=== PATIENT | female | born 1965 | race Caucasian/White ===

== ENCOUNTER 2020-10-23 14:50 | Emergency (ER) | payer BC, SELFPAY ==
--- NOTE | 2020-10-23 14:49 | ECG_ITS ---
APPROVED REPORT Exam: Resting ECG HR:73 bpm ECG Measurements Heart Rate 73 AXES AK 156 P 40 QRSd 80 QRS 36 QT 388 T 24 QTc 427 Conclusion Normal sinus rhythm Cannot rule out Anterior infarct, age undetermined Abnormal ECG Electronically signed by : Aamir Pichardo, 10/24/2020 17:51:30
[2020-10-23 14:51] VITALS: BP 208/118; PULSE 76; RESP 20; TEMP 36.6; O2SAT 95; BMI 29.8
--- NOTE | 2020-10-23 14:53 | HMH.EDGENADL ---
ED Disposition Clinical Impression: Syncope and collapse, Essential hypertension Disposition: Home, Self-Care Condition on Discharge: Good Instructions: DI for Syncope in Adults (Fainting) Additional Instructions: Follow-up with your primary care doctor. Call tomorrow to make follow-up cement. Return to the emergency department if fainting returns or if chest pain, shortness of breath, severe headache. Referrals: Audra Kinsey [Primary Care Provider] - - Critical Care Critical Care Time: No Attestation: On , the high probability of a clinically significant, sudden or life threatening deterioration of the following system(s) required my full and direct attention, intervention and personal management. The time I documented below is in addition to time spent performing reported procedures but includes the following listed in this critical care notation. Medical Decision Making - Doni Inquiry Pt receiving controlled substance: No Vital Signs: 10/23/20 14:51 10/23/20 15:04 10/23/20 16:19 Temperature 97.8 F Temperature Source Oral Pulse Rate [Left Radial] 76 78 68 Respiratory Rate 20 Blood Pressure [Right Arm] 208/118 H 176/109 H 173/99 H Blood Pressure Mean [Right Arm] 148 131 123 Blood Pressure Source [Right Arm] Automatic Cuff Automatic Cuff Automatic Cuff Blood Pressure Position [Right Arm] Sitting Sitting Sitting 02 Sat by Pulse Oximetry 95 94 L 96 Oxygen Delivery Method Room Air Room Air Room Air - Lab Data Lab Results 10/23/20 14:53: WBC 14.7 H, RBC 4.70, Hgb 14.1, Hct 42.1, MCV 89.6, MCH 29.9, MCHC 33.4, RDW 13.9, Plt Count 212, MPV 8.3, Neut % (Auto) 78.3, Lymph % (Auto) 16.8, Motley % (Auto) 3.5, Eos % (Auto) 0.8, Baso % (Auto) 0.6, Neut # (Auto) 11.5 H, Lymph # (Auto) 2.5, Motley # (Auto) 0.5, Eos # (Auto) 0.1, Baso # (Auto) 0.1 10/23/20 14:53: Sodium 139, Potassium 3.6, Chloride 105, Carbon Dioxide 26, Anion Gap 11.6, BUN 17, Creatinine 0.90, Estimated Creat Clear 94, Estimated GFR 65, Est GFR ( Amer) 79, Glucose 101 H, Calcium 9.4, Troponin I < 0.01 Result diagrams: 10/23/20 14:53 10/23/20 14:53 Orders (Tests/Meds): ORDERS Category Date Time Status XR chest portable Stat Exams 10/23/20 15:11 Taken Troponin I Q3H Lab 10/23/20 18:15 Ordered Troponin I Q3H Lab 10/23/20 21:15 Ordered - Radiology Data #1 Image(s): Chest Image Reviewed: Yes I reviewed the patient's radiology image Preliminary Findings: Normal/NAD - CT Data CT Scan: Head Time Received: 16:[address] Reviewed: Yes: I have viewed the radiologist's interpretation Findings Narrative: PROCEDURE: CT HEAD/BRAIN WO CON CLINICAL INDICATION: syncope, headache COMPARISON: No exams were available for comparison TECHNIQUE: Axial images obtained. All CT scans at the facility use one or more dose reduction, viz: automated exposure control, ma/kV adjustment per patient size (including targeted exams where dose is matched to indication, i.e. head), or iterative reconstruction technique. FINDINGS: No midline shift, mass effect, intracranial hemorrhage, hydrocephalus, or extra-axial fluid collection is evident. The calvarium has an unremarkable appearance. No mastoid effusion. No sinus air-fluid level. IMPRESSION: No acute intracranial finding Dictated by: Rasheed Aldridge MD 10/23/2020 16:04 Rasheed Aldridge MD in [facility] 10/23/2020 16:04 - ECG Data Tracing #1 EKG interpreted by Joby Esteves MD: Rhythm: sinus Rate: 73 [place]: normal Ectopy: none Conduction: normal ST Segment Changes: none T Wave Changes: none Q Waves: none No evidence of acute ischemia or injury Poor R wave progression - Reevaluation(s) Time: 16:30 Reevaluation #1: BP 160/93. Feels normal, asymptomatic. General Adult HPI - General Chief complaint: Syncope Stated complaint: syncope Time Seen by Provider: 10/23/20 15:10 - History of Present Illness HPI narrative: Brought in by
[2020-10-23 15:04] VITALS: BP 176/109; PULSE 78; O2SAT 94
--- NOTE | 2020-10-23 15:11 | XR_ITS ---
PROCEDURE: XR CHEST PORTABLE CLINICAL HISTORY: syncope COMPARISON: No exams were available for comparison FINDINGS: The cardiomediastinal silhouette and pulmonary vascularity are within normal limits. The lungs are clear without infiltrates, suspicious nodules, or pleural effusions. No acute bony abnormalities. IMPRESSION: No acute findings. Dictated by: Rasheed Aldridge MD 10/23/2020 17:11 Rasheed Aldridge MD in [facility] 10/23/2020 17:11
--- NOTE | 2020-10-23 15:23 | CT_ITS ---
PROCEDURE: CT HEAD/BRAIN WO CON CLINICAL INDICATION: syncope, headache COMPARISON: No exams were available for comparison TECHNIQUE: Axial images obtained. All CT scans at the facility use one or more dose reduction, viz: automated exposure control, ma/kV adjustment per patient size (including targeted exams where dose is matched to indication, i.e. head), or iterative reconstruction technique. FINDINGS: No midline shift, mass effect, intracranial hemorrhage, hydrocephalus, or extra-axial fluid collection is evident. The calvarium has an unremarkable appearance. No mastoid effusion. No sinus air-fluid level. IMPRESSION: No acute intracranial finding Dictated by: Rasheed Aldridge MD 10/23/2020 16:04 Rasheed Aldridge MD in [facility] 10/23/2020 16:04
[2020-10-23 15:25] LABS: Basophils # 0.1 K/mm3 (0-0.2); Basophils % 0.6 % (0.1-2.0); Eosinophils # 0.1 K/mm3 (0.0-0.4); Eosinophils % 0.8 % (0.1-12.0); Hematocrit 42.1 % (37.0-47.0); Hemoglobin 14.1 g/dL (12.2-16.2); Lymphocytes # 2.5 K/mm3 (0.7-4.5); Lymphocytes % 16.8 % (10-50); Mean Corpuscular HGB Conc 33.4 g/dL (31.8-35.4); Mean Corpuscular Hemoglobin 29.9 pg (27.0-31.2); Mean Corpuscular Volume 89.6 fl (81-99); Mean Platelet Volume 8.3 fl (7.4-10.4); Monocytes # 0.5 K/mm3 (0.1-1.0); Monocytes % 3.5 % (1.7-9.3); Neutrophils # 11.5 K/mm3 (1.8-7.8); Neutrophils % 78.3 % (37.0-80.0); Platelet Count 212 K/mm3 (142-424); Red Cell Distribution Width 13.9 % (11.5-17.5); White Blood Count 14.7 K/mm3 (4.8-10.8)
[2020-10-23 15:27] LABS: Chloride 105 mmol/L (98-107); Potassium 3.6 mmoL/L (3.5-5.1); Sodium 139 mmol/L (136-145)
[2020-10-23 15:30] LABS: Anion Gap 11.6 mEq/L (5-15); Blood Urea Nitrogen 17 mg/dl (7-17); Calcium 9.4 mg/dl (8.4-10.2); Carbon Dioxide 26 mmol/L (22.0-30.0); Creatinine Clearance Estimated 94 mL/min (50-200); Estimated Glomerular Filt Rate 65 ml/min (>60); GFR (African American) 79 ML/MIN (>60); Glucose 101 mg/dl (74-100)
--- NOTE | 2020-10-23 15:37 | PC.NURSE ---
Rad at bedside
--- NOTE | 2020-10-23 15:40 | PC.NURSE ---
Pt to rad
[2020-10-23 15:43] LABS: Troponin I < 0.01 ng/ml (0.00-0.034)
[2020-10-23 16:19] VITALS: BP 173/99; PULSE 68; O2SAT 96
[2020-10-23 16:37] VITALS: BP 159/96; PULSE 70; RESP 17; TEMP 36.7; O2SAT 96
== END 2020-10-23 16:41 | disposition home or self-care (01) ==
PROVIDERS: Emergency Provider Emergency Medicine; PCP Nurse Practitioner Family
DX: R55 Syncope and collapse (principal); I10 Essential (primary) hypertension; Z79.899 Other long term (current) drug therapy
CPT/HCPCS: 70450; 71045; 80048; 84484; 85025; 93005; 99283

== ENCOUNTER 2023-09-29 08:15 | Emergency (ER) | payer SELFPAY ==
[2023-09-29 08:20] VITALS: BP 140/91; PULSE 105; RESP 18; TEMP 36.9; O2SAT 100; BMI 32.0
--- NOTE | 2023-09-29 08:30 | ED_ITS ---
Discharge Plan Disposition Patient Disposition: Home, Self-Care Condition: Good Prescriptions Prescriptions: New azithromycin [Zithromax] 250 mg tablet 250 mg PO UD DOSE PK Qty: 6 0RF Rx Instructions: Take two (2) tablets today, then one (1) tablet days #2 thru #5 ibuprofen [ibuprofen] 600 mg tablet 600 mg PO Q6HP PRN (Reason: Mild Pain) Qty: 30 0RF ondansetron 4 mg Tablet,Disintegrating 4 mg PO Q8H PRN (Reason: Nausea) Qty: 12 0RF No Action escitalopram oxalate 20 MG tablet 20 mg PO DAILY clonazepam 0.5 MG tablet 0.5 mg PO DAILY benazepril-hydrochlorothiazide 1 EACH tablet 1 each PO DAILY labetalol 100 MG tablet 100 mg PO DAILY potassium chloride 10 MEQ tablet extended release 10 meq PO DAILY simvastatin 20 MG tablet 20 mg PO DAILY Referrals Follow up/Referrals: Audra Kinsey [Primary Care Provider] - See instructions Activity Restrictions/Add. Instructions Additional Instructions/Restrictions: Drink plenty of fluids. Take tylenol or ibuprofen for pain or fever. I sent in a prescription for i buprofen 600 mg, but you could just take over the counter. Take the medications as directed. Follow up with your regular doctor. GO TO THE ER FOR ANY WORSENING SYMPTOMS Clinical Impressions Clinical Impression: Acute viral syndrome Stand Alone Forms Stand Alone Forms: Work/School Release Instructions Patient Instructions: DI for Viral Syndrome [place]charge ED Provider[place]cho[place] Campbell [facility] [place] General Stated complaint: body aches, 102 fever, sore throat last night Time Seen by Provider: 09/29/23 08:28 History of Present Illness Provider Complaint: She states that since yesterday she has had fever, chills, body aches, sore throat, malaise, cough, and nausea. Related Data Home Medications Medication Instructions Recorded Confirmed benazepril 10 1 each PO DAILY BLOOD PRESSURE 10/23/20 10/23/20 mg-hydrochlorothiazide 12.5 mg tablet clonazepam 0.5 mg tablet 0.5 mg PO DAILY Anxiety 10/23/20 10/23/20 escitalopram oxalate 20 mg tablet 20 mg PO DAILY Anxiety 10/23/20 10/23/20 labetalol 100 mg tablet 100 mg PO DAILY BLOOD PRESSURE 10/23/20 10/23/20 potassium chloride 10 mEq 10 meq PO DAILY LOW K+ 10/23/20 10/23/20 tablet,extended release simvastatin 20 mg tablet 20 mg PO DAILY High cholesterol 10/23/20 10/23/20 Previous Rx's Medication Instructions Recorded azithromycin 250 mg tablet 250 mg PO UD DOSE PK #6 tabs 09/29/23 (Zithromax) ibuprofen 600 mg tablet 600 mg PO Q6HP PRN Mild Pain #30 09/29/23 tabs ondansetron 4 mg disintegrating 4 mg PO Q8H PRN Nausea #12 tabs 09/29/23 tablet Allergies Allergy/AdvReac Type Severity Reaction Status Date / Time No Known Allergies Allergy Verified 09/29/23 09:05 [facility] Disclaimer: The information contained in this section may have been updated after the patient was seen, as this information can be updated by other users. Social History Smoking Status: Unknown if ever smoked alcohol intake: current current occupational status: employed Travel in the last 8 weeks: None ROS Obtained: Yes All systems reviewed & no additional complaints except as documented Constitutional Constitutional: Reports chills and Reports fever(s) Eyes Eyes: Denies eye discharge ENT Ears, Nose, Mouth, and Throat: Reports as per HPI Cardiovascular Cardiovascular: Denies chest pain Respiratory Respiratory: Denies chest congestion and Reports cough Gastrointestinal Gastrointestingal: Reports nausea; Denies abdominal pain, constipation, cramping, diarrhea or vomiting Musculoskeletal Musculoskeletal: Denies arthralgias Integumentary/Breasts Skin/Breast: Denies rash Neurologic Neurologic: Denies paresthesias Physical Exam General General appearance: alert and in no apparent distress Eye Eye exam: Present normal appearance, PERRL and EOMI ENT ENT exam: Present mucous membranes moist and normal external ear exam Expanded ENT Exam External ear exam: Present normal external inspection TM/Canal exam: Bilateral TM: erythema and bulging Nose exam: Absent sinus tenderness Nasal speculum exam: Bilateral: normal Mouth exam: Present normal external inspection; Absent drooling Teeth exam: Present normal inspection Throat exam: Present tonsillar erythema and tonsillomegaly Neck Neck exam: Present normal inspection, full ROM and trachea midline; Absent tenderness, lymphadenopathy or thyromegaly Chest Chest inspection: Present normal inspection and symmetric chest wall rise; Abse nt tenderness or rash Respiratory Respiratory exam: Present normal lung sounds bilaterally; Absent respiratory distress, wheezes, stridor or accessory muscle use Cardiovascular Cardiovascular exam: Present regular rate, normal rhythm and normal heart sounds Abdominal Exam Abdominal exam: Present soft; Absent distention, tenderness, guarding, rebound or rigidity Extremities Exam Extremities exam: Present normal inspection, full ROM and normal capillary refill; Absent tenderness or calf tenderness Back Exam Back exam: Present normal inspection and full ROM; Absent tenderness Neurological Exam Neurological exam: Present alert and oriented X3 Psychiatric Psychiatric exam: Present normal affect and normal mood Skin Skin exam: Present warm, dry, intact and normal color Lymphatic Lymphatic Findings: no adenopathy Medical Decision Making Medical Records Medical records reviewed: No I reviewed the patient's medical records. Doni Inquiry Pt receiving controlled substance: No Lab Data Lab results reviewed: Yes I reviewed the patient's lab results.
[2023-09-29 09:22] LABS: UTC Influenza A Antigen Negative (Negative); UTC Influenza B Antigen Negative (Negative)
[2023-09-29 09:23] LABS: UTC Strep Screen (Rapid) Negative (Negative)
[2023-09-29 09:33] VITALS: BP 140/91; PULSE 105; RESP 18; TEMP 36.9; O2SAT 100
== END 2023-09-29 09:32 | disposition home or self-care (01) ==
PROVIDERS: Emergency Provider Nurse Practitioner Family; PCP Nurse Practitioner Family
DX: R05.9 Cough, unspecified (principal); R50.9 Fever, unspecified; R07.0 Pain in throat; R11.0 Nausea; R53.81 Other malaise; M79.18 Myalgia, other site; B34.9 Viral infection, unspecified
CPT/HCPCS: 87804; 87880; 99204; 99212; G0463

== ENCOUNTER 2023-12-26 08:04 | Emergency (ER) | payer OTHER, SELFPAY ==
--- NOTE | 2023-12-26 08:10 | XR_ITS ---
FINAL REPORT CLINICAL HISTORY: fall FINDINGS: LEFT HAND Three views demonstrate no acute fracture or dislocation. The visualized joint spaces are normally aligned. The soft tissues are unremarkable. IMPRESSION: No acute process. Reviewed, Interpreted and Dictated by Monroe Barnett MD Transcribed by Supriya Chapman Authenticated and [facility]
--- NOTE | 2023-12-26 08:10 | XR_ITS ---
FINAL REPORT CLINICAL HISTORY: fall FINDINGS: LEFT WRIST THREE VIEW FINDINGS: Three views show no evidence of an acute, displaced fracture or dislocation of the visualized bony architecture. The joint spaces appear normal. IMPRESSION: Unremarkable exam. Reviewed, Interpreted and Dictated by Monroe Barnett MD Transcribed by Supriya Chapman Authenticated and [facility]
[2023-12-26 08:15] VITALS: BP 121/80; PULSE 78; RESP 18; TEMP 36.8; O2SAT 95; BMI 31.4
--- NOTE | 2023-12-26 08:34 | ED_ITS ---
Discharge Plan Disposition Patient Disposition: Home, Self-Care Condition: Good Prescriptions Prescriptions: No Action escitalopram oxalate 20 MG tablet 20 mg PO DAILY benazepril-hydrochlorothiazide 1 EACH tablet 1 each PO DAILY labetalol 100 MG tablet 100 mg PO DAILY potassium chloride 10 MEQ tablet extended release 10 meq PO DAILY simvastatin 20 MG tablet 20 mg PO DAILY ibuprofen [ibuprofen] 600 mg tablet 600 mg PO Q6HP PRN (Reason: Mild Pain) Qty: 30 0RF amlodipine 10 mg tablet 10 mg PO DAILY Patient Comments: TAKE 1 TABLET BY MOUTH ONCE DAILY Referrals Follow up/Referrals: Myron Arias DO [Staff Physician] - See instructions Audra Kinsey [Primary Care Provider] - See instructions Activity Restrictions/Add. Instructions Additional Instructions/Restrictions: Rest the extremity, apply ice for 15 minutes as tolerated three or four times per day, Elevate the extremity as tolerated while you are resting. Take ibuprofen for pain (if you can take this). Follow up with Dr. Arias (orthopedics). I put in a referral but you need to call his office and schedule an appointment. Follow up with your regular doctor. GO TO THE ER FOR ANY WORSENING SYMPTOMS Clinical Impressions Clinical Impression: Left wrist sprain, Sprain of left hand Instructions Patient Instructions: DI for Wrist Sprain, DI for Hand Injury Discharge ED Provider: Ochoa Campbell [facility] General Stated complaint: AO- Pain in L wrist Mode of Arrival: Ambulatory Source of Information: Patient Limitations: No Limitations Time Seen by Provider: 12/26/23 08:33 Description of Symptoms (Recalled from Triage Doc. by RN): Pt was going over fence and fell and hurt left wrist. HEENT Symptoms (Recalled from RN notes): Yes Resp Symptoms (Recalled from RN notes): No Skin Symptoms (Recalled from RN notes): No MS Symptoms (Recalled from RN notes): No Functional Status (Recalled from RN notes): n/a History of Present Illness Provider Complaint: She states that she fell 2 days ago and came down on her left wrist and hand. She has had left wrist pain and swelling since then. She states that flexing her wrist makes her pain worse. She denies any other injury and complaints. Related Data Home Medications Medication Instructions Recorded Confirmed benazepril 10 1 each PO DAILY BLOOD PRESSURE 10/23/20 12/26/23 mg-hydrochlorothiazide 12.5 mg tablet escitalopram oxalate 20 mg tablet 20 mg PO DAILY Anxiety 10/23/20 12/26/23 labetalol 100 mg tablet 100 mg PO DAILY BLOOD PRESSURE 10/23/20 12/26/23 potassium chloride 10 mEq 10 meq PO DAILY LOW K+ 10/23/20 12/26/23 tablet,extended release simvastatin 20 mg tablet 20 mg PO DAILY High cholesterol 10/23/20 12/26/23 amlodipine 10 mg tablet 10 mg PO DAILY 12/26/23 12/26/23 Previous Rx's Medication Instructions Recorded ibuprofen 600 mg tablet 600 mg PO Q6HP PRN Mild Pain #30 09/29/23 tabs Allergies Allergy/AdvReac Type Severity Reaction Status Date / Time No Known Allergies Allergy Verified 12/26/23 08:22 Worker's Comp Is this a Worker's Comp case?: No [facility] Disclaimer: The information contained in this section may have been updated after the patient was seen, as this information can be updated by other users. Social History Smoking Status: Unknown if ever smoked alcohol intake: current alcohol intake frequency: holidays/special occasions only current occupational status: employed Travel in the last 8 weeks: None ROS Obtained: Yes All systems reviewed & no additional complaints except as documented Constitutional Constitutional: Denies chills and Denies fever(s) Eyes Eyes: Denies eye discharge ENT Ears, Nose, Mouth, and Throat: Denies dizziness, Denies otalgia and Denies sore throat Cardiovascular Cardiovascular: Denies chest pain Respiratory Respiratory: Denies shortness of breath, Denies chest congestion, Denies cough, Denies stridor and Denies wheezing Gastrointestinal Gastrointestingal: Denies nausea or vomiting Musculoskeletal Musculoskeletal: Reports as per HPI Integumentary/Breasts Skin/Breast: Denies redness, Denies rash and Denies wounds Neurologic Neurologic: Denies dizziness and Denies paresthesias Allergic/Immunologic Allergic/Immunologic: Denies wheezing Physical Exam General General appearance: alert and in no apparent distress Head Head exam: atraumatic, normocephalic and normal inspection Eye Eye exam: Present normal appearance, PERRL and EOMI ENT ENT exam: Present normal exam, normal oropharynx, mucous membranes moist, TM's normal bilaterally and normal external ear exam Neck Neck exam: Present normal inspection, full ROM and trachea midline; Absent meningismus or lymphadenopathy Chest Chest inspection: Present normal inspection and symmetric chest wall rise; Absent tenderness Respiratory Respiratory exam: Present normal lung sounds bilaterally; Absent respiratory distress Cardiovascular Cardiovascular exam: Present regular rate and normal rhythm; Absent JVD Abdominal Exam Abdominal exam: Present soft and normal bowel sounds; Absent distention, tenderness or guarding Extremities Exam Extremities exam: Present normal capillary refill; Absent calf tenderness Expanded Upper Extremity Exam Left: Shoulder exam: Present normal inspection and full ROM; Absent tenderness or tenderness over AC joint Arm exam: Present normal inspection and full ROM; Absent tenderness Elbow exam: Present normal inspection and full ROM; Absent tenderness, pain w/ pronation/supination or tenderness over radial head Forearm/Wrist exam: Present tenderness and swelling; Absent full ROM, abrasion, laceration, ecchymosis, deformity, crepitus, dislocation, erythema, tenderness over anatomical snuff box or pain with axial thumb loading Hand exam: Present full ROM, tenderness and swelling; Absent abrasion, laceration, skin avulsion, ecchymosis, deformity, crepitus, dislocation, erythema, amputation, nail avulsion or subungual hematoma Neuromotor exam: Normal wrist extension, thumb opposition, thumb IP flexion, thumb adduction and fingers 2-5 abduction Neurosensory exam: Normal radial nerve, ulnar nerve and median nerve Vascular exam: Normal capillary refill, radial pulse and ulnar pulse Back Exam Back exam: Present normal inspection; Absent tenderness Neurological Exam Neurological exam: Present alert and oriented X3 Psychiatric Psychiatric exam: Present normal affect and normal mood Skin Skin exam: Present warm, dry, intact and normal color Lymphatic Lymphatic Findings: no adenopathy Medical Decision Making Medical Records Medical records reviewed: No I reviewed the patient's medical records. Doni Inquiry Pt receiving controlled substance: No Vital Signs: 12/26/23 08:15 Temperature 98.3 F Temperature Source Oral Pulse Rate [Right Radial] 78 Respiratory Rate 18 Blood Pressure [Right Arm] 121/80 Blood Pressure Mean [Right Arm] 93 Blood Pressure Source [Right Arm] Automatic Cuff Blood Pressure Position [Right Arm] Sitting 02 Sat by Pulse Oximetry 95 Oxygen Delivery Method Room Air Orders (Tests/Meds): ORDERS Category Date Time Status Wrist XR left minimum 3 views [XR wrist LT min 3V] Stat Exams 12/26/23 08:10 Taken XR hand LT min 3V Stat Exams 12/26/23 08:10 Taken Radiology Data #1: Image(s): Wrist Image Reviewed: Yes I reviewed the patient's radiology image and Yes I have reviewed radiologist's interpretation Preliminary Findings: No Fracture Seen Accession No. : [id number] Patient Name / ID : NELSON CHAUHAN / [id number] Exam Date : 12/26/2023 08:10:06 ( Final ) Study Comment : Sex / Age : Creator : Beny Barnett MD Dictator : Shovel Engineer : Certified Pedorthotist : Beny Barnett MD Approver2 : Report Date : 12/26/2023 08:46:59 My Comment : FINAL REPORT CLINICAL HISTORY: fall FINDINGS: LEFT WRIST THREE VIEW FINDINGS: Three views show no evidence of an acute, displaced fracture or dislocation of the visualized bony architecture. The joint spaces appear normal. IMPRESSION: Unremarkable exam. Reviewed, Interpreted and Dictated by Monroe Barnett MD Transcribed by Supriya Chapman Authenticated and [facility]: Image(s): Hand Image Reviewed: Yes I reviewed the patient's radiology image and Yes I have reviewed radiologist's interpretation Preliminary Findings: No Fracture Seen Accession No. : [id number] Patient Name / ID : NELSON CHAUHAN / [id number] Exam Date : 12/26/2023 08:08:06 ( Final ) Study Comment : Sex / Age : Creator : Beny Barnett MD Dictator : Shovel Engineer : Certified Pedorthotist : Beny Barnett MD Approver2 : Report Date : 12/26/2023 08:47:03 My Comment : FINAL REPORT CLINICAL HISTORY: fall FINDINGS: LEFT HAND Three views demonstrate no acute fracture or dislocation. The visualized joint spaces are normally aligned. The soft tissues are unremarkable. IMPRESSION: No acute process. Reviewed, Interpreted and Dictated by Monroe Barnett MD Transcribed by Supriya Chapman Authenticated and [facility] Procedures Risk/Benefits of Procedure(s) Were Explained: Yes Orthopedic Splinting/Casting Injury #1: Side: left Upper Extremity Injury Location: wrist and hand Upper Extremity Immobilizer: volar splint and applied by nurse/dr singh Post Cast/Splinting Neuro Status: intact and no change Post Cast/Splinting Vasc Status: intact and no change
[2023-12-26 09:23] VITALS: BP 121/80; PULSE 78; RESP 18; TEMP 36.8; O2SAT 95
== END 2023-12-26 09:23 | disposition home or self-care (01) ==
PROVIDERS: Emergency Provider Nurse Practitioner Family; PCP Nurse Practitioner Family
DX: S63.92XA Sprain of unspecified part of left wrist and hand, initial encounter (principal); W19.XXXA Unspecified fall, initial encounter
CPT/HCPCS: 73110; 73130; 99212; 99214; G0463

== ENCOUNTER 2024-02-28 07:46 | Outpatient (CLI) | payer OTHER, SELFPAY ==
--- NOTE | 2024-02-28 08:13 | MM_ITS ---
PROCEDURE INFORMATION: Exam: MG Bilateral Screening 3D Mammography Exam date and time: 02/28/2024 7:57 AM Age: 58 years old Clinical indication: Screening mammogram TECHNIQUE: Imaging protocol: Bilateral Screening tomosynthesis and 2D mammography including computer-aided detection (CAD) when performed. COMPARISON: 1. MG MAMMO SCREENING DIGITAL TOMOSYNTHESIS BILATERAL W CAD 12/29/2021 8:43 AM 2. MG MAMMO DIAGNOSTIC DIGITAL TOMOSYNTHESIS BILATERAL W CAD 11/30/2018 2:41 PM 3. MG MAMMO DIAGNOSTIC RIGHT W CAD 04/18/2018 1:14 PM 4. MG MAMMO DIAGNOSTIC RIGHT W CAD 10/12/2017 8:12 AM FINDINGS: MAMMOGRAPHY: Breast composition: There are scattered areas of fibroglandular density. Mass: 0.5 cm mass within the upper outer anterior left breast should be further assessed with spot views in CC/MLO projection. Ultrasound may also be required. Architectural distortion: No new or suspicious architectural distortion. Calcifications: No new or suspicious calcifications are present Asymmetric density: No new or suspicious asymmetric density is present Skin thickening: None. Axillary adenopathy: None. IMPRESSION: 0.5 cm mass within the upper outer anterior left breast should be further assessed with spot views in CC/MLO projection. Ultrasound may also be required. ASSESSMENT: BI-RADS category 0: Incomplete-need additional imaging evaluation
[2024-02-28 08:58] LABS: Basophils # 0.1 K/mm3 (0-0.2); Basophils % 1.1 % (0.1-2.0); Eosinophils # 0.2 K/mm3 (0.0-0.4); Eosinophils % 2.2 % (0.1-12.0); Hematocrit 40.2 % (37.0-47.0); Hemoglobin 13.6 g/dL (12.2-16.2); Lymphocytes # 2.3 K/mm3 (0.7-4.5); Lymphocytes % 31.3 % (10-50); Mean Corpuscular HGB Conc 33.8 g/dL (31.8-35.4); Mean Corpuscular Hemoglobin 29.6 pg (27.0-31.2); Mean Corpuscular Volume 87.4 fl (81-99); Mean Platelet Volume 8.6 fl (7.4-10.4); Monocytes # 0.3 K/mm3 (0.1-1.0); Monocytes % 4.3 % (1.7-9.3); Neutrophils # 4.5 K/mm3 (1.8-7.8); Neutrophils % 61.1 % (37.0-80.0); Platelet Count 189 K/mm3 (142-424); Red Cell Distribution Width 14.2 % (11.5-17.5); White Blood Count 7.3 K/mm3 (4.8-10.8)
[2024-02-28 09:35] LABS: Alanine Aminotransferase 26 U/L (12-78); Albumin Level 4.2 g/dl (3.5-5.0); Albumin/Globulin Ratio 1.4 (1.1-1.8); Alkaline Phosphatase 87 U/L (38-126); Anion Gap 8.7 mEq/L (5-15); Aspartate Amino Transferase 27 U/L (14-36); Bilirubin,Total 0.5 mg/dl (0.2-1.3); Blood Urea Nitrogen 24 mg/dl (7-17); Calcium 9.3 mg/dl (8.4-10.2); Carbon Dioxide 32 mmol/L (22.0-30.0); Chloride 105 mmol/L (98-107); Chol/HDL Ratio 3.8 (1-3.5); Cholesterol 166 mg/dl (140-200); Estimated Glomerular Filt Rate 51 ml/min (>60); GFR (African American) 62 ML/MIN (>60); Globulin 2.9 g/dL (1.3-3.2); Glucose 113 mg/dl (74-100); HDL Cholesterol 44 mg/dl (40-60); Potassium 3.7 mmoL/L (3.5-5.1); Sodium 142 mmol/L (136-145); Total Protein,Serum 7.1 g/dl (6.3-8.2); Triglycerides 188 mg/dl (30-150); VLDL Cholesterol 38 mg/dL (0-40)
[2024-02-28 09:45] LABS: Direct LDL Cholesterol 86.19 mg/dL (100-129)
[2024-02-28 09:51] LABS: Free T4 (Free Thyroxine) 0.77 ng/dl (0.78-2.19)
[2024-02-28 09:52] LABS: 25-OH Vitamin D, Total 35.8 ng/mL (30-100)
[2024-02-29 12:49] LABS: Thyroid Stimulating Hormone 3.85 uIU/mL (0.465-4.68)
== END 2024-02-28 23:59 | disposition home or self-care (01) ==
LOC: RAD 07:46
PROVIDERS: PCP Nurse Practitioner Family; Visit Provider Nurse Practitioner Family
DX: Z12.31 Encounter for screening mammogram for malignant neoplasm of breast (principal)
CPT/HCPCS: 36415; 77063; 77067; 80050; 80053; 80061; 82306; 84439; 84443; 85025

== ENCOUNTER 2024-03-14 13:42 | Outpatient (CLI) | payer OTHER, SELFPAY ==
--- NOTE | 2024-03-14 13:46 | MM_ITS ---
PROCEDURE INFORMATION: Exam: US Left Breast, Complete MG Left Diagnostic Breast Tomosynthesis Exam date and time: 03/14/2024 1:32 PM Age: 58 years old Clinical indication: Patient recalled on the basis of a screening mammogram for further evaluation; Left breast; mass TECHNIQUE: Imaging protocol: Complete ultrasound of all four quadrants of the left breast and the retroareolar regions, including ultrasound of the axilla when performed. Left Diagnostic tomosynthesis and 2D mammography including computer-aided detection (CAD) when performed. Unilateral or bilateral exam. COMPARISON: 1. MG MM DIG SCREENING MAMM BI W/CAD 02/28/2024 7:57 AM 2. MG MAMMO SCREENING DIGITAL TOMOSYNTHESIS BILATERAL W CAD 12/29/2021 8:43 AM FINDINGS: MAMMOGRAPHY: Breast composition: There are scattered areas of fibroglandular density (based on the most recent screening mammogram report). Breast mammogram findings: Digital diagnostic spot compression views of the left breast and 90 degree lateral view of the left breast demonstrate a persistent 0.5 cm mass without associated architectural distortion ULTRASOUND: Breast ultrasound findings: Sonographic images of the left breast including the retroareolar region, all 4 quadrants and the axilla demonstrates a hypoechoic ovoid mass measuring 0.4 x 0.3 cm and the left 1 o'clock axis 3 cm from the nipple. The finding likely reflects a debris-filled cyst and most closely corresponds to the mass on mammography.. No architectural distortion or acoustical shadowing. No skin thickening or axillary adenopathy. IMPRESSION: Mass on screening mammography most closely correlates with a probably benign debris-filled cyst. A six-month follow-up left mammogram and targeted left breast ultrasound are recommended to ensure stability over time. There is no stellate mass, architectural distortion or suspicious microcalcifications in either breast to suggest malignancy. No skin thickening or axillary adenopathy. ASSESSMENT: BI-RADS Category 3: Probably benign.
== END 2024-03-14 23:59 | disposition home or self-care (01) ==
LOC: RAD 13:43
PROVIDERS: PCP Nurse Practitioner Family; Visit Provider Nurse Practitioner Family
DX: R92.2 Inconclusive mammogram (principal)
CPT/HCPCS: 76641; 77061; 77065; G0279

== ENCOUNTER 2024-09-28 13:36 | Outpatient (CLI) | payer OTHER, SELFPAY ==
--- NOTE | 2024-09-28 13:39 | MM_ITS ---
PROCEDURE INFORMATION: Exam: US Left Breast, Complete MG Left Diagnostic Breast Tomosynthesis MG Radiologist Consultation Exam date and time: 09/28/2024 2:09 PM Age: 59 years old Clinical indication: Short-term radiographic followup; Left breast; mass TECHNIQUE: Imaging protocol: Complete ultrasound of all four quadrants of the left breast and the retroareolar regions, including ultrasound of the axilla when performed. Left Diagnostic tomosynthesis and 2D mammography including computer-aided detection (CAD) when performed. Unilateral or bilateral exam. This study was interpreted in real time.The patient received the results. COMPARISON: US BREAST LT COMPLETE 03/14/2024 1:59 PM COMPARISON MORE: MG MM DIG MAMM DX UNILAT LT CAD 03/14/2024 1:32 PM FINDINGS: MAMMOGRAPHY: Breast composition: There are scattered areas of fibroglandular density. Breast mammogram findings: There is no stellate mass, architectural distortion or suspicious microcalcifications to suggest malignancy. No skin thickening or axillary adenopathy. Stable 0.5 cm mass in the middle third of the left upper outer quadrant ULTRASOUND: Breast ultrasound findings: Sonographic images of the left 1 o'clock axis 3 cm from the nipple demonstrates 2 adjacent subcentimeter cysts 0.3 cm left, nipple most closely corresponds to the mass on mammography. 0.4 cm left 8 o'clock axis 2 cm from the nipple. IMPRESSION: No mammographic or sonographic evidence of malignancy. Subcentimeter mass on screening mammography corresponds to a benign cyst.Annual bilateral mammographic screening is recommended in February 2025 unless otherwise clinically indicated. ASSESSMENT: BI-RADS Category 2: Benign.
== END 2024-09-28 23:59 | disposition home or self-care (01) ==
LOC: RAD 13:36
PROVIDERS: PCP Nurse Practitioner Family; Visit Provider Nurse Practitioner Family
DX: D48.62 Neoplasm of uncertain behavior of left breast (principal)
CPT/HCPCS: 76641; 77061; 77065; G0279

== ENCOUNTER 2025-04-15 15:44 | Outpatient (CLI) | payer OTHER, SELFPAY ==
--- OUTSIDE RECORDS SUMMARY | 2025-04-15 15:46 | XMS_ITS | Clinical Summary ---
Author Organization [facility] Address [address] [place] [address] Care Team Providers Care Big Data Developer Name Role Phone Audra Kinsey APRN Primary Care Provider Allergies No known active allergies Medications simvastatin (ZOCOR) 20 MG tablet Take 1 tablet by mouth Every Evening. Active potassium chloride (MICRO-K) 10 MEQ CR capsule Take 1 capsule by mouth Daily. Active labetalol (NORMODYNE) 100 MG tablet TAKE 1/2-1 TABLET BY MOUTH TWICE DAILY Active hydroCHLOROthia zide (MICROZIDE) 12.5 MG capsule Take 1 capsule by mouth Daily. Active escitalopram (LEXAPRO) 20 MG tablet Take 1 tablet by mouth Daily. Active benazepril (LOTENSIN) 10 MG tablet Take 1 tablet by mouth Daily. Active amoxicillin (AMOXIL) 500 MG capsule take 1 capsule by mouth every 8 hours for 7 days Active amLODIPine (NORVASC) 10 MG tablet Take 1 tablet by mouth Daily. Active aspirin 81 MG EC tablet Take 1 tablet by mouth Daily. Active Active Problems Problem Noted Date Diagnosed Date Women's annual routine gynecological examination 10/02/2024 Family History Medical History Relation Name Comments Breast cancer Neg Hx Colon cancer Neg Hx Endometrial cancer Neg Hx Ovarian cancer Neg Hx Uterine cancer Neg Hx Social History Tobacco Use Types Packs/Day Years Used Date Smoking Tobacco: Never Assessed Comments No Sex and Gender Information Value Date Recorded Sex Assigned at Not on file Legal Sex Female 10:53 AM EDT Gender Identity Not on file Sexual Orientation Not on file Last Filed Vital Signs Vital Sign Reading Time Taken Comments Blood Pressure 122/78 10/02/2024 1:46 PM EST Pulse - - Temperature - - Respiratory Rate - - Oxygen Saturation - - Inhaled Oxygen Concentration - - Weight 95.9 kg (211 lb 6.4 oz) 10/02/2024 1:46 P M EST Height 167.6 cm (5' 6 ) 10/02/2024 1:46 PM EST Body Mass Index 34.12 10/02/2024 1:46 PM EST Plan of Treatment Health Maintenance Due Date Last Done Comments TDAP/TD VACCINES (1 - Tdap) 1984 COLON CANCER SCREENING 5 YEA R SIGMOIDOSCOPY [address] COLONOGRAPHY 2010 FECAL OCCULT BLOOD TEST 2010 FIT Testing (1 year) 2010 Pneumococcal Vaccine 50+ (1 of 1 - PCV) 2015 ZOSTER VACCINE (1 of 2) 2015 ANNUAL PHYSICAL 01/21/2021 HEPATITIS C SCREENING 01/21/2021 COLOGUARD 10/21/2023 10/21/2020 COLORECTAL CANCER SCREENING 10/21/2023 MAMMOGRAM 12/30/2023 12/29/2021, 04/0 11/2018, 04/18/2018, Additional history exists COVID-19 Vaccine (2 - 2023-2 5 season) 2024 10/23/2020 INFLUENZA VACCINE 05/29/2025 09/19/2023, 05/31/2016 Annual Gynecologic Pelvic an d Breast Exam 10/03/2025 10/02/2024 PAP SMEAR 10/02/2027 10/02/2024 Procedures Procedure Name Priority Date/Time Associated Diagnosis Comments LIQUID-BASED PAP SMEAR WITH HPV GENOTYPING IF ASCUS, [facility]) Routine 10/02/2024 2:11 PM EST Women's annual routine gynecological examination MAMMO SCREENING DIGITAL TOMOSYNTHESIS BILATERAL W CAD Routine 12/29/2021 9:03 AM EDT Visit for screening mammogram from Last 3 Months or Most Recently Relevant to Health Maintenance Results * LIQUID-BASED PAP SMEAR WITH HPV GENOTYPING IF ASCUS ([facility]) (10/02/2024 2:11 PM EST) Reference Lab Report [facility] [address] [place] [address] or [phone] Claudio Chan M.D., Websphere Administrator PATIENT NAME [id number] GISSEL [facility]. [id number] AGE SEX SSN CLIENT REF # [id number] [id number] 1965 F [id number] [facility] [id number] REQUESTING M.D. [place] [address] BIANCA TALLEY DATE COLLECTED DATE RECEIVED DATE REPORTED 10/02/2024 10/02/2024 10/03/2024 ThinPrep Pap with Cytyc Imaging DIAGNOSIS: Negative for intraepithelial lesion or malignancy Multiple factors can influence accuracy of Pap tests; therefore, screening at regular intervals is necessary for early cancer detection. SPECIMEN ADEQUACY: SATISFACTORY FOR EVALUATION Transformation zone is present. SOURCE OF SPECIMEN: CERVICAL/ENDOCERV ICAL SLIDES: 1 CLINICAL HISTORY: Women's annual routine gynecological examination NATURAL RESOURCES TECHNICIAN: AMELIA BRASWELL (ASCP) CPT CODES: 51079 10/03/2024 9:39 AM EST [facility] ThinPrep Vial Cervix uteri structure / Unknown Collection / Unknown 10/02/2024 2:11 PM EST 10/02/2024 2:11 PM EST Bianca Talley MD PATHOLOGY/CYTOLOGY ORDERABLES F inal Result [facility]
[address] [place] [address], * Mammo Screening Digital Tomosynthesis Bilateral With CAD (12/29/2021 9:03 AM EDT) Anatomical Region Laterality Modality Breast N/A Mammography 12/30/2021 2:52 PM EDT Impressions 12/30/2021 2:53 PM EDT No findings suspicious for malignancy. ACR BI-RADS CATEGORY: 1, NEGATIVE RECOMMENDATION: Yearly mammogram, yearly clinical breast exam, and encourage self breast awareness. CAD was used. The standard false negative rate of mammography is between 10% and 25%. Complex patterns or increased breast density will markedly elevate the false negative rate of mammography. A letter, in lay terminology, with the results of this exam will be mailed to the patient. At our facility, a triangular marker is positioned over a palpable area of concern indicated by the patient. A douglas marker is placed over a visible skin lesion. A linear marker indicates a scar. If there is a palpable area of concern, biopsy should be considered regardless of imaging findings. This report was finalized on 12/30/2021 2:[address] Blanca Beth MD. Narrative 12/30/2021 2:53 PM EDT DIGITAL SCREENING MAMMOGRAM WITH TOMOSYNTHESIS HISTORY: Routine screening. IMAGE COMPARISON: 11/30/2018, 04/18/2018, 08/26/2017. TECHNIQUE: Low dose full field digital breast tomosynthesis imaging was performed with 2D and 3D acquisitions consisting of bilateral CC and MLO views. FINDINGS: There are scattered areas of fibroglandular density. The fibroglandular pattern appears stable. There is no mass, worrisome microcalcifications, or architectural distortion to suggest development of malignancy. Audra Kinsey APRN [facility] [place] [facility] ORDERABLES Fin al Result from Last 3 Months or Most Recently Relevant to Health Maintenance Insurance Care Teams Big Data Developer Relationship Specialty Start Date End Date Audra Kinsey APRN NPI: [id number] [place] [address] PCP - General Nurse Practitioner 01/21/21
--- NOTE | 2025-04-15 15:47 | MM_ITS ---
PROCEDURE INFORMATION: Exam: MG Bilateral Screening 3D Mammography Exam date and time: 04/15/2025 3:53 PM Age: 59 years old Clinical indication: Screening examination TECHNIQUE: Imaging protocol: Bilateral Screening tomosynthesis and 2D mammography including computer-aided detection (CAD) when performed. COMPARISON: 1. MG MM DIG MAMM DX UNILAT LT CAD 09/28/2024 1:43 PM 2. MG MM DIG MAMM DX UNILAT LT CAD 03/14/2024 1:32 PM 3. MG MM DIG SCREENING MAMM BI W/CAD 02/28/2024 7:57 AM 4. MG MAMMO SCREENING DIGITAL TOMOSYNTHESIS BILATERAL W CAD 12/29/2021 8:43 AM FINDINGS: MAMMOGRAPHY: Breast composition: There are scattered areas of fibroglandular density. Mass: No suspicious masses. Architectural distortion: No suspicious distortion. Calcifications: No suspicious calcifications. Asymmetric density: None. Skin thickening: None. Axillary adenopathy: None. IMPRESSION: No mammographic evidence of malignancy. Annual screening is recommended unless otherwise clinically indicated. ASSESSMENT: BI-RADS Category 1: Negative.
== END 2025-04-15 23:59 | disposition home or self-care (01) ==
LOC: RAD 15:45
PROVIDERS: PCP Nurse Practitioner Family; Visit Provider Nurse Practitioner Family
DX: Z12.31 Encounter for screening mammogram for malignant neoplasm of breast (principal); R92.323 Mammographic fibroglandular density, bilateral breasts
CPT/HCPCS: 77063; 77067